=== PATIENT | male | born 1950 | race Caucasian/White ===

== ENCOUNTER → 2017-04-02 | Outpatient (CLI) | payer MEDICARE, OTHER ==
[~2017-04-02] MED LIST: CHL25 PO; DOXY100C PO; FLUC100T PO; LISI-661 PO; MONT10TA21 PO; PANT40TA25 PO; PRED10 PO; PROP10TA73 PO
[2017-04-02 10:52] LABS: BASOPHILS # (AUTO) 0.01 K/uL (0.00-0.20); BASOPHILS % (AUTO) 0.1 % (0.0-2.0); EOSINOPHILS # (AUTO) 0.03 K/uL (0.00-0.70); EOSINOPHILS % (AUTO) 0.55 % (1.0-6.0); HEMATOCRIT 37.9 % (41-53); HEMOGLOBIN 12.7 g/dL (13.5-17.5); LYMPHOCYTES # (AUTO) 0.6 K/uL (1.0-4.8); LYMPHOCYTES % (AUTO) 10.6 % (22.0-44.0); MEAN CORPUSCULAR HEMOGLOBIN 29.1 pg (26.0-34.0); MEAN CORPUSCULAR HGB CONC 33.4 G/dL (31.0-37.0); MEAN CORPUSCULAR VOLUME 87 fL (80-100); MONOCYTES # (AUTO) 0.3 K/uL (0.1-1.0); MONOCYTES % (AUTO) 5.6 % (2.0-9.0); NEUTROPHILS % (AUTO) 83.2 % (40.0-70.0); PLATELET COUNT (AUTO) 97 K/uL (150-450); RED BLOOD CELL COUNT(AUTO) 4.35 MIL/uL (4.50-5.90)
[2017-04-02 11:05] LABS: ALANINE AMINOTRANSFERASE 37 U/L (12-78); ALBUMIN 3.6 g/dL (3.4-5.0); ANION GAP 9 mmol/L (8-16); ASPARTATE AMINOTRANSFERASE 25 U/L (15-37); CALCIUM, TOTAL 9.2 mg/dL (8.8-10.5); CARBON DIOXIDE 28 mmol/L (22-29); CHLORIDE 102 mmol/L (98-107); CHOL/HDL RATIO 2.7 (4.2-7.3); CREATININE 1.03 mg/dL (0.60-1.30); GLOMERULAR FILTR. RATE CALC > 60 mL/min (>60); POTASSIUM 3.8 mmol/L (3.5-5.1); SODIUM SERUM 139 mmol/L (136-145); THYROID STIMULATING HORMONE 1.73 uIU/mL (0.36-3.74); TOTAL PROTEIN, SERUM 7.6 g/dL (6.4-8.2); UREA NITROGEN, BLOOD 12 mg/dL (7-18)
[2017-04-02 11:21] LABS: HEMOGLOBIN A1C 6.3 % (4.5-6.2)
[2017-04-02 11:42] LABS: RBC MORPHOLOGY COMMENT ABNORMAL RBC MORPH
== END | disposition home or self-care (01) ==
LOC: LABPV 08:27
PROVIDERS: ATTEND Internal Medicine Cardiovascular Disease
DX: I11.0 Hypertensive heart disease with heart failure (principal); I50.9 Heart failure, unspecified; E11.8 Type 2 diabetes mellitus with unspecified complications; E55.9 Vitamin D deficiency, unspecified
CPT/HCPCS: 82306; 83036; 83735; 84439; 84443

== ENCOUNTER → 2018-01-11 | Outpatient (CLI) | payer MEDICARE, OTHER ==
[2018-01-11 10:54] LABS: ALANINE AMINOTRANSFERASE 59 U/L (12-78); ALBUMIN 3.4 g/dL (3.4-5.0); ALKALINE PHOSPHATASE 111 U/L (46-116); ANION GAP 7 mmol/L (8-16); ASPARTATE AMINOTRANSFERASE 54 U/L (15-37); BILIRUBIN,TOTAL 0.8 mg/dL (0.1-1.0); CALCIUM, TOTAL 9.5 mg/dL (8.8-10.5); CARBON DIOXIDE 30 mmol/L (22-29); CHLORIDE 103 mmol/L (98-107); CHOL/HDL RATIO 2.7 (4.2-7.3); CHOLESTEROL 212 mg/dL (131-200); CREATININE 1.12 mg/dL (0.60-1.30); GLOMERULAR FILTR. RATE CALC > 60 mL/min (>60); GLUCOSE,RANDOM 105 mg/dL (70-110); HDL CHOLESTEROL 78 mg/dL (40-60); LDL CHOL (CALC.) 123 mg/dL (0-130); POTASSIUM 4.5 mmol/L (3.5-5.1); SODIUM SERUM 140 mmol/L (136-145); TOTAL PROTEIN, SERUM 7.5 g/dL (6.4-8.2); TRIGLYCERIDES 56 mg/dL (15-150); UREA NITROGEN, BLOOD 15 mg/dL (7-18)
== END | disposition home or self-care (01) ==
LOC: LABPV 07:46
PROVIDERS: ATTEND Internal Medicine Cardiovascular Disease
DX: I11.0 Hypertensive heart disease with heart failure (principal); I50.9 Heart failure, unspecified; E11.8 Type 2 diabetes mellitus with unspecified complications; E55.9 Vitamin D deficiency, unspecified; D56.5 Hemoglobin E-beta thalassemia

== ENCOUNTER → 2018-03-14 | Outpatient (CLI) | payer MEDICARE, OTHER ==
[2018-03-14 11:12] LABS: BASOPHILS % (AUTO) 0.4 % (0.0-2.0); EOSINOPHILS % (AUTO) 0.5 % (1.0-6.0); HEMATOCRIT 35.5 % (41-53); HEMOGLOBIN 11.3 g/dL (13.5-17.5); LYMPHOCYTES # (AUTO) 0.8 K/uL (1.0-4.8); LYMPHOCYTES % (AUTO) 12.5 % (22.0-44.0); MEAN CORPUSCULAR HGB CONC 31.7 G/dL (31.0-37.0); MEAN CORPUSCULAR VOLUME 82 fL (80-100); MONOCYTES # (AUTO) 0.4 K/uL (0.1-1.0); MONOCYTES % (AUTO) 5.7 % (2.0-9.0); NEUTROPHILS % (AUTO) 80.9 % (40.0-70.0); RED BLOOD CELL COUNT(AUTO) 4.33 MIL/uL (4.50-5.90); RED CELL DISTRIBUTION WIDTH 21.1 % (11.5-14.5)
[2018-03-14 11:22] LABS: HEMOGLOBIN A1C 6.4 % (4.5-6.2)
[2018-03-14 11:36] LABS: ALANINE AMINOTRANSFERASE 61 U/L (12-78); ALBUMIN 3.3 g/dL (3.4-5.0); ALKALINE PHOSPHATASE 146 U/L (46-116); ANION GAP 8 mmol/L (8-16); ASPARTATE AMINOTRANSFERASE 46 U/L (15-37); BILIRUBIN,TOTAL 1.3 mg/dL (0.1-1.0); CALCIUM, TOTAL 8.9 mg/dL (8.8-10.5); CARBON DIOXIDE 27 mmol/L (22-29); CHLORIDE 103 mmol/L (98-107); CHOL/HDL RATIO 2.6 (4.2-7.3); CHOLESTEROL 207 mg/dL (131-200); CREATININE 1.04 mg/dL (0.60-1.30); FREE T4 (FREE THYROXINE) 0.88 ng/dL (0.76-1.46); GLOMERULAR FILTR. RATE CALC > 60 mL/min (>60); GLUCOSE,RANDOM 110 mg/dL (70-110); HDL CHOLESTEROL 81 mg/dL (40-60); LDL CHOL (CALC.) 107 mg/dL (0-130); SODIUM SERUM 138 mmol/L (136-145); THYROID STIMULATING HORMONE 1.93 uIU/mL (0.36-3.74); TOTAL PROTEIN, SERUM 7.5 g/dL (6.4-8.2); TRIGLYCERIDES 95 mg/dL (15-150); UREA NITROGEN, BLOOD 8 mg/dL (7-18)
[2018-03-14 12:08] LABS: PLATELET COUNT (AUTO) 79 K/uL (150-450)
== END | disposition home or self-care (01) ==
LOC: LABPV 09:37
PROVIDERS: ATTEND Internal Medicine Cardiovascular Disease
DX: I11.0 Hypertensive heart disease with heart failure (principal); I50.9 Heart failure, unspecified; D56.5 Hemoglobin E-beta thalassemia; R73.09 Other abnormal glucose; Z79.899 Other long term (current) drug therapy
CPT/HCPCS: 82306; 83036; 83735; 84439; 84443

== ENCOUNTER 2018-09-27 06:25 | Day surgery (SDC) | payer MEDICARE, OTHER ==
[~2018-09-27] VITALS: Ht 167.6 cm; Wt 77.5 kg
[~2018-09-27 06:25] MED LIST changes: +SODIUM CHLORIDE 0.9% 0 ML IV ONE
[2018-09-27] MEDS ORDERED: LIDOCAINE 2% 11 ML JELLY TP ONE (06:26)
[2018-09-27] MEDS ORDERED: EPINEPHrine 1:1,000 [1 MG/ML] AMP SQ ONE (06:26)
[2018-09-27] MEDS ORDERED: BENZOCAINE 20% 50 MCG/SPRAY 57 GM TP ONE (06:26)
[2018-09-27] MEDS ORDERED: SODIUM CHLORIDE 0.9% 1,000 ML IV ONE ×2 (06:30→06:46)
[2018-09-27] MEDS ORDERED: MIDAZOLAM HCL 2 MG/2 ML VIAL ONE (08:04)
[2018-09-27] MEDS ORDERED: FentaNYL CITRATE-PF 100 MCG/2 ML VIAL ONE (08:04)
[2018-09-27] MEDS ORDERED: MethylPREDNISolone SOD SUCC 125 MG/2 ML VIAL IVP ONE (08:45)
[2018-09-27] MEDS ORDERED: MethylPREDNISolone SOD SUCC 125 MG/2 ML VIAL ONE (08:45)
[2018-09-27] MEDS ORDERED: OXYGEN THERAPY IH SCH (20:00)
== END 2018-09-27 10:00 | disposition home or self-care (01) ==
LOC: SURGERY 06:25
PROVIDERS: ATTEND Internal Medicine Critical Care Medicine
DX: J38.4 Edema of larynx (principal); B37.0 Candidal stomatitis; E78.00 Pure hypercholesterolemia, unspecified; K74.60 Unspecified cirrhosis of liver; I50.9 Heart failure, unspecified; Z98.890 Other specified postprocedural states; Z87.891 Personal history of nicotine dependence; Z85.05 Personal history of malignant neoplasm of liver
CPT/HCPCS: 31623; 31624; 71045; 87015; 87070; 87101; 87205; 87206; 87220; 88108; 88312; J0171; J2250; J2930; J3010; J7030

== ENCOUNTER 2019-03-19 10:50 | Inpatient (IN) | payer OTHER ==
[~2019-03-19] VITALS: Ht 167.6 cm; Wt 76.2 kg
[~2019-03-19 10:50] MED LIST changes: -SODIUM CHLORIDE 0.9% 0 ML IV ONE
[2019-03-19] MEDS ORDERED: PRED20 PO (11:14)
[2019-03-19] MEDS ORDERED: CHOL100018 PO (11:14)
[2019-03-19] MEDS ORDERED: SUCR1TAB PO (11:14)
[2019-03-19] MEDS ORDERED: MULT1TAB66 PO (11:14)
[2019-03-19] MEDS ORDERED: PRAV40TA4 PO (11:14)
[2019-03-19] MEDS ORDERED: LISI-661 PO (11:14)
[2019-03-19] MEDS ORDERED: TAMS-1 PO (11:14)
[2019-03-19] MEDS ORDERED: DOXY100C PO (11:14)
[2019-03-19] MEDS ORDERED: FOLI1 PO (11:14)
[2019-03-19] MEDS ORDERED: FURO20 PO (11:14)
[2019-03-19] MEDS ORDERED: METO25XL PO (11:14)
[2019-03-19] MEDS ORDERED: FERR-89 PO (11:14)
[2019-03-19] MEDS ORDERED: FURO40 PO (11:14)
[2019-03-19] MEDS ORDERED: MONT10TA21 PO (11:14)
[2019-03-19] MEDS ORDERED: RANI150T7 PO (11:14)
[2019-03-19] MEDS ORDERED: OMEP20 PO (11:14)
[2019-03-19] MEDS ORDERED: OXYGEN THERAPY IH SCH (11:30)
[2019-03-19 12:06] LABS: BASOPHILS % (AUTO) 0.2 % (0.0-2.0); EOSINOPHILS % (AUTO) 0.7 % (1.0-6.0); HEMATOCRIT 37.1 % (41-53); HEMOGLOBIN 11.8 g/dL (13.5-17.5); LYMPHOCYTES # (AUTO) 0.2 K/uL (1.0-4.8); LYMPHOCYTES % (AUTO) 3.3 % (22.0-44.0); MEAN CORPUSCULAR HEMOGLOBIN 28.2 pg (26.0-34.0); MEAN CORPUSCULAR HGB CONC 31.8 G/dL (31.0-37.0); MEAN CORPUSCULAR VOLUME 89 fL (80-100); MONOCYTES # (AUTO) 0.5 K/uL (0.1-1.0); MONOCYTES % (AUTO) 6.7 % (2.0-9.0); NEUTROPHILS # (AUTO) 6.4 K/uL (1.8-7.7); RED BLOOD CELL COUNT(AUTO) 4.19 MIL/uL (4.50-5.90); RED CELL DISTRIBUTION WIDTH 21.9 % (11.5-14.5)
[2019-03-19 12:07] LABS: NEUTROPHILS % (AUTO) 89.1 % (40.0-70.0)
[2019-03-19 12:12] LABS: ANION GAP 4 mmol/L (8-16); CALCIUM, TOTAL 8.8 mg/dL (8.8-10.5); CARBON DIOXIDE 33 mmol/L (22-29); CHLORIDE 97 mmol/L (98-107); GLOMERULAR FILTR. RATE CALC > 60 mL/min (>60); GLUCOSE,RANDOM 127 mg/dL (70-110); POTASSIUM 4.2 mmol/L (3.5-5.1); SODIUM SERUM 134 mmol/L (136-145); UREA NITROGEN, BLOOD 16 mg/dL (7-18)
[2019-03-19 12:20] LABS: ALANINE AMINOTRANSFERASE 80 U/L (12-78); ALBUMIN 2.5 g/dL (3.4-5.0); ALKALINE PHOSPHATASE 161 U/L (46-116); ASPARTATE AMINOTRANSFERASE 83 U/L (15-37); BILIRUBIN,TOTAL 1.2 mg/dL (0.1-1.0); LIPASE 179 U/L (73-393); TOTAL PROTEIN, SERUM 6.1 g/dL (6.4-8.2)
[2019-03-19 12:23] LABS: D-DIMER 3.69 mg/L FEU (0.00-0.50); INR 1.1 (0.9-1.1); PROTHROMBIN TIME 11.8 SEC (9.4-11.6)
[2019-03-19 12:27] LABS: LACTIC ACID 2.4 mmol/L (0.4-2.0)
[2019-03-19 12:33] LABS: PLATELET COUNT (AUTO) 57 K/uL (150-450)
[2019-03-19 12:34] LABS: PLATELET MORPHOLOGY COMMENT LARGE PLTS PRESENT
[2019-03-19 12:52] LABS: APPEARANCE,URINE CLEAR (CLEAR); BILIRUBIN,URINE NEGATIVE (NEGATIVE); GLUCOSE, URINE (UA) NEGATIVE (NEGATIVE); KETONES,URINE NEGATIVE (NEGATIVE); LEUKOCYTE ESTERASE ,URINE NEGATIVE (NEGATIVE); NITRATE,URINE NEGATIVE (NEGATIVE); OCCULT BLOOD,URINE NEGATIVE (NEGATIVE); PH,URINE 6.5 (5.0-8.0); PROTEIN,URINE NEGATIVE (NEGATIVE)
[2019-03-19 12:56] LABS: BACTERIA,URINE None Seen /HPF (None Seen); RBC,URINE None Seen /HPF (0-2); WBC,URINE None Seen /HPF (0-5)
[2019-03-19] MEDS ORDERED: FUROSEMIDE 40 MG/4 ML VIAL IVP ONE (13:00)
[2019-03-19] MEDS ORDERED: IOVERSOL 350 MG/ML 100 ML VIAL ONE (13:02)
[2019-03-19] MEDS ORDERED: SODIUM CHLORIDE 0.9% 100 ML ONE (13:02)
[2019-03-19 13:04] LABS: CREATININE,URINE RANDOM 64.5 mg/dL (30.0-125.0)
[2019-03-19] MEDS ORDERED: 0.9% SODIUM CHLORIDE 10 ML SYRINGE IVP PRN ×2 (14:45→15:00)
[2019-03-19] MEDS ORDERED: ALBUTEROL SULFATE 2.5 MG/0.5 ML NEB SOLUTION NEB PRN (15:00)
[2019-03-19] MEDS ORDERED: IPRATROPIUM BROMIDE 0.5 MG/2.5 ML NEB SOLUTION NEB PRN (15:00)
[2019-03-19] MEDS ORDERED: MAGNESIUM HYDROXIDE SUSPENSION 30 ML UDCUP PO PRN (15:00)
[2019-03-19] MEDS ORDERED: BISACODYL 10 MG RECTAL RECTAL SUPPOSITORY PR PRN (15:00)
[2019-03-19] MEDS ORDERED: ONDANSETRON HCL 4 MG/2 ML VIAL IVP PRN (15:00)
[2019-03-19] MEDS ORDERED: ACETAMINOPHEN 325 MG TABLET PO PRN (15:00)
[2019-03-19 15:07] LABS: B-TYPE NATRIURETIC PEPTIDE 117 pg/mL (0-100)
[2019-03-19] MEDS: SUCRALFATE 1 GM TABLET PO SCH ×2 (16:40→22:31)
[2019-03-19 21:21] VITALS: BP 111/68
[2019-03-19] MEDS: DOCUSATE SODIUM 100 MG CAPSULE PO SCH (22:23)
[2019-03-19 23:07] VITALS: BP 100/62
[2019-03-20 04:32] VITALS: BP 105/62
[2019-03-20 05:33] LABS: BASOPHILS % (AUTO) 0.5 % (0.0-2.0); EOSINOPHILS % (AUTO) 1.6 % (1.0-6.0); HEMATOCRIT 38.1 % (41-53); HEMOGLOBIN 12.4 g/dL (13.5-17.5); LYMPHOCYTES # (AUTO) 0.4 K/uL (1.0-4.8); LYMPHOCYTES % (AUTO) 5.5 % (22.0-44.0); MEAN CORPUSCULAR HEMOGLOBIN 28.4 pg (26.0-34.0); MEAN CORPUSCULAR HGB CONC 32.6 G/dL (31.0-37.0); MEAN CORPUSCULAR VOLUME 87 fL (80-100); MONOCYTES # (AUTO) 0.6 K/uL (0.1-1.0); MONOCYTES % (AUTO) 7.5 % (2.0-9.0); NEUTROPHILS # (AUTO) 6.7 K/uL (1.8-7.7); NEUTROPHILS % (AUTO) 84.9 % (40.0-70.0); PLATELET COUNT (AUTO) 73 K/uL (150-450); RED BLOOD CELL COUNT(AUTO) 4.36 MIL/uL (4.50-5.90); RED CELL DISTRIBUTION WIDTH 21.4 % (11.5-14.5)
[2019-03-20 05:46] LABS: ALANINE AMINOTRANSFERASE 78 U/L (12-78); ALBUMIN 2.6 g/dL (3.4-5.0); ALKALINE PHOSPHATASE 164 U/L (46-116); ANION GAP 4 mmol/L (8-16); ASPARTATE AMINOTRANSFERASE 70 U/L (15-37); BILIRUBIN,TOTAL 1.4 mg/dL (0.1-1.0); CALCIUM, TOTAL 9.2 mg/dL (8.8-10.5); CARBON DIOXIDE 34 mmol/L (22-29); CHLORIDE 97 mmol/L (98-107); CHOLESTEROL 168 mg/dL (131-200); CREATININE 0.94 mg/dL (0.60-1.30); GLOMERULAR FILTR. RATE CALC > 60 mL/min (>60); GLUCOSE,RANDOM 130 mg/dL (70-110); HDL CHOLESTEROL 83 mg/dL (40-60); LDL CHOL (CALC.) 80 mg/dL (0-130); POTASSIUM 3.6 mmol/L (3.5-5.1); SODIUM SERUM 135 mmol/L (136-145); TOTAL PROTEIN, SERUM 6.4 g/dL (6.4-8.2); TRIGLYCERIDES 24 mg/dL (15-150); UREA NITROGEN, BLOOD 16 mg/dL (7-18)
[2019-03-20] MEDS: FERROUS SULFATE 325 MG EC TABLET PO SCH (08:30)
[2019-03-20] MEDS: CHOLECALCIFEROL (VIT D3) 1,000 UNITS TABLET PO SCH (08:30)
[2019-03-20] MEDS: LISINOPRIL 10 MG TABLET PO SCH (08:30)
[2019-03-20 09:22] VITALS: BP 130/76
[2019-03-20 10:09] LABS: SPECIMENTYPE,BODY FLUID THORACENTESIS
[2019-03-20] MEDS: FUROSEMIDE 40 MG/4 ML VIAL IVP SCH (10:57)
[2019-03-20] MEDS: DOCUSATE SODIUM 100 MG CAPSULE PO SCH ×2 (10:58→20:15)
[2019-03-20] MEDS: SUCRALFATE 1 GM TABLET PO SCH ×3 (10:58→20:15)
[2019-03-20] MEDS: TAMSULOSIN HCL 0.4 MG CAPSULE PO SCH (10:58)
[2019-03-20] MEDS: PredniSONE 20 MG TABLET PO SCH (10:58)
[2019-03-20] MEDS: PRAVASTATIN SODIUM 40 MG TABLET PO SCH (10:59)
[2019-03-20] MEDS: METOPROLOL SUCCINATE 25 MG ER TABLET PO SCH (10:59)
[2019-03-20] MEDS: FOLIC ACID 1 MG TABLET PO SCH (10:59)
[2019-03-20] MEDS: MULTIVITAMINS, THERAPEUTIC TABLET PO SCH (10:59)
[2019-03-20] MEDS: MONTELUKAST SODIUM 10 MG TABLET PO SCH (10:59)
[2019-03-20] MEDS: PANTOPRAZOLE SODIUM 40 MG DR TABLET PO SCH (10:59)
[2019-03-20 11:57] VITALS: BP 101/73
[2019-03-20 12:24] LABS: APPEARANCE,UNSPUN,BODY FLUID HAZY (CLEAR)
[2019-03-20 12:25] LABS: APPEARANCE,SPUN,BODY FLUID CLEAR (CLEAR); COLOR,BODY FLUID DARK YELLOW (LT YELLOW); LYMPHOCYTES,BODY FLUID 18 %; MONOCYTES,BODY FLUID 48 %; NEUTROPHILS,BODY FLUID 17 %; PH, BODY FLUID 8; TOTAL VOLUME,BODY FLUID 1020 mL; WBC, BODY FLUID 120 /cu. mm.
[2019-03-20 12:26] LABS: BASOPHILS,BODY FLUID 0 %; EOSINOPHILS,BF (ANAL) 0 %
[2019-03-20 13:04] LABS: OTHER CELLS,BODY FLUID 17
[2019-03-20 15:22] VITALS: BP 103/59
[2019-03-20 20:32] VITALS: BP 91/61
[2019-03-21 00:20] VITALS: BP 90/63
[2019-03-21 04:25] VITALS: BP 94/62
[2019-03-21 06:38] LABS: BASOPHILS % (AUTO) 0.3 % (0.0-2.0); HEMATOCRIT 33.4 % (41-53); HEMOGLOBIN 11.1 g/dL (13.5-17.5); LYMPHOCYTES # (AUTO) 0.5 K/uL (1.0-4.8); LYMPHOCYTES % (AUTO) 8.1 % (22.0-44.0); MEAN CORPUSCULAR HEMOGLOBIN 29.4 pg (26.0-34.0); MEAN CORPUSCULAR HGB CONC 33.2 G/dL (31.0-37.0); MEAN CORPUSCULAR VOLUME 88 fL (80-100); MONOCYTES # (AUTO) 0.5 K/uL (0.1-1.0); MONOCYTES % (AUTO) 7.8 % (2.0-9.0); NEUTROPHILS # (AUTO) 5.1 K/uL (1.8-7.7); NEUTROPHILS % (AUTO) 81.8 % (40.0-70.0); PLATELET COUNT (AUTO) 53 K/uL (150-450); RED BLOOD CELL COUNT(AUTO) 3.78 MIL/uL (4.50-5.90); RED CELL DISTRIBUTION WIDTH 21.4 % (11.5-14.5)
[2019-03-21 06:49] LABS: PLATELET MORPHOLOGY COMMENT LARGE PLTS PRESENT
[2019-03-21 07:01] LABS: ALANINE AMINOTRANSFERASE 61 U/L (12-78); ALBUMIN 2.1 g/dL (3.4-5.0); ALKALINE PHOSPHATASE 129 U/L (46-116); ANION GAP 1 mmol/L (8-16); ASPARTATE AMINOTRANSFERASE 62 U/L (15-37); BILIRUBIN,TOTAL 1.2 mg/dL (0.1-1.0); CALCIUM, TOTAL 8.7 mg/dL (8.8-10.5); CARBON DIOXIDE 38 mmol/L (22-29); CHLORIDE 98 mmol/L (98-107); CREATININE 0.86 mg/dL (0.60-1.30); GLOMERULAR FILTR. RATE CALC > 60 mL/min (>60); GLUCOSE,RANDOM 103 mg/dL (70-110); POTASSIUM 3.8 mmol/L (3.5-5.1); SODIUM SERUM 137 mmol/L (136-145); TOTAL PROTEIN, SERUM 5.3 g/dL (6.4-8.2); UREA NITROGEN, BLOOD 21 mg/dL (7-18)
[2019-03-21] MEDS: METOPROLOL SUCCINATE 25 MG ER TABLET PO SCH (07:42)
[2019-03-21 07:55] VITALS: BP 102/48
[2019-03-21] MEDS: FERROUS SULFATE 325 MG EC TABLET PO SCH (08:08)
[2019-03-21] MEDS: FUROSEMIDE 40 MG/4 ML VIAL IVP SCH (08:08)
[2019-03-21] MEDS: PredniSONE 20 MG TABLET PO SCH (08:09)
[2019-03-21] MEDS: DOCUSATE SODIUM 100 MG CAPSULE PO SCH (08:09)
[2019-03-21] MEDS: SUCRALFATE 1 GM TABLET PO SCH (08:09)
[2019-03-21] MEDS: TAMSULOSIN HCL 0.4 MG CAPSULE PO SCH (08:09)
[2019-03-21] MEDS: FOLIC ACID 1 MG TABLET PO SCH (08:09)
[2019-03-21] MEDS: PANTOPRAZOLE SODIUM 40 MG DR TABLET PO SCH (08:10)
[2019-03-21] MEDS: CHOLECALCIFEROL (VIT D3) 1,000 UNITS TABLET PO SCH (08:10)
[2019-03-21] MEDS: MONTELUKAST SODIUM 10 MG TABLET PO SCH (08:10)
[2019-03-21] MEDS: PRAVASTATIN SODIUM 40 MG TABLET PO SCH (08:10)
[2019-03-21] MEDS: MULTIVITAMINS, THERAPEUTIC TABLET PO SCH (08:10)
[2019-03-21] MEDS: LISINOPRIL 10 MG TABLET PO SCH (09:00)
[2019-03-21 11:26] VITALS: BP 99/62
== END 2019-03-21 13:30 | disposition left against medical advice (07) | DRG 291 ==
LOC: EMS 10:59 → 5S 18:46 → MERGE 18:46
PROVIDERS: ADMIT Internal Medicine; ATTEND Internal Medicine
PROC: 0W993ZZ Drainage of Right Pleural Cavity, Percutaneous Approach (ICD-10-PCS; principal; 2019-03-20)
DX: I11.0 Hypertensive heart disease with heart failure (principal); J96.00 Acute respiratory failure, unspecified whether with hypoxia or hypercapnia; I50.31 Acute diastolic (congestive) heart failure; C22.9 Malignant neoplasm of liver, not specified as primary or secondary; E87.1 Hypo-osmolality and hyponatremia; J91.8 Pleural effusion in other conditions classified elsewhere; J84.10 Pulmonary fibrosis, unspecified; J43.9 Emphysema, unspecified; I50.811 Acute right heart failure; D69.6 Thrombocytopenia, unspecified; D63.8 Anemia in other chronic diseases classified elsewhere; J98.4 Other disorders of lung; K70.30 Alcoholic cirrhosis of liver without ascites; Z85.05 Personal history of malignant neoplasm of liver; Z87.891 Personal history of nicotine dependence; Z92.21 Personal history of antineoplastic chemotherapy; Z99.81 Dependence on supplemental oxygen; Z79.899 Other long term (current) drug therapy; Z53.21 Procedure and treatment not carried out due to patient leaving prior to being seen by health care provider
CPT/HCPCS: 32555; 71275; 76705; 76942; 80074; 82465; 82570; 82945; 83605; 83615; 83735; 83986; 84145; 84157; 85379; 87015; 87040; 87070; 87101; 87205; 87206; 89051; 93005; 93306; 93970; 94640; 96374; J1940; J7050

== ENCOUNTER 2019-03-23 17:49 | Inpatient (IN) | payer OTHER ==
[~2019-03-23] VITALS: Ht 167.6 cm; Wt 82.6 kg
[~2019-03-23 17:49] MED LIST changes: +CHOL100018 PO; +FERR-89 PO; +FOLI1 PO; +FURO20 PO; +FURO40 PO; +METO25XL PO; +MULT1TAB66 PO; +OMEP20 PO; +PRAV40TA4 PO; +PRED20 PO; +RANI150T7 PO; +SUCR1TAB PO; +TAMS-1 PO
[2019-03-23] MEDS ORDERED: DOPamine HCL 400 MG/D5%-WATER 250 ML IV PRN (18:15)
[2019-03-23] MEDS ORDERED: SUCR1TAB PO (18:21)
[2019-03-23] MEDS ORDERED: RANI150T7 PO (18:21)
[2019-03-23] MEDS ORDERED: DOXY100C PO (18:21)
[2019-03-23] MEDS ORDERED: FERR-89 PO (18:21)
[2019-03-23] MEDS ORDERED: MONT10TA21 PO (18:21)
[2019-03-23] MEDS ORDERED: OMEP20 PO (18:21)
[2019-03-23] MEDS ORDERED: METO25XL PO (18:21)
[2019-03-23] MEDS ORDERED: LISI-661 PO (18:21)
[2019-03-23] MEDS ORDERED: PRAV40TA4 PO (18:21)
[2019-03-23] MEDS ORDERED: CHOL100018 PO (18:21)
[2019-03-23] MEDS ORDERED: FOLI1 PO (18:21)
[2019-03-23] MEDS ORDERED: MULT1TAB66 PO (18:21)
[2019-03-23 18:34] LABS: BASOPHILS % (AUTO) 0.1 % (0.0-2.0); EOSINOPHILS % (AUTO) 2.1 % (1.0-6.0); HEMATOCRIT 35.7 % (41-53); HEMOGLOBIN 11.9 g/dL (13.5-17.5); LYMPHOCYTES # (AUTO) 0.5 K/uL (1.0-4.8); LYMPHOCYTES % (AUTO) 7.2 % (22.0-44.0); MEAN CORPUSCULAR HGB CONC 33.3 G/dL (31.0-37.0); MEAN CORPUSCULAR VOLUME 87 fL (80-100); MONOCYTES # (AUTO) 0.7 K/uL (0.1-1.0); MONOCYTES % (AUTO) 9.3 % (2.0-9.0); NEUTROPHILS # (AUTO) 5.8 K/uL (1.8-7.7); NEUTROPHILS % (AUTO) 81.3 % (40.0-70.0); RED BLOOD CELL COUNT(AUTO) 4.09 MIL/uL (4.50-5.90); RED CELL DISTRIBUTION WIDTH 21.8 % (11.5-14.5)
[2019-03-23 18:42] LABS: ANION GAP 4 mmol/L (8-16); CARBON DIOXIDE 34 mmol/L (22-29); CHLORIDE 94 mmol/L (98-107); CREATININE 1.18 mg/dL (0.60-1.30); GLUCOSE,RANDOM 134 mg/dL (70-110); POTASSIUM 4.1 mmol/L (3.5-5.1); SODIUM SERUM 132 mmol/L (136-145); UREA NITROGEN, BLOOD 26 mg/dL (7-18)
[2019-03-23 18:43] LABS: CALCIUM, TOTAL 8.2 mg/dL (8.8-10.5); GLOMERULAR FILTR. RATE CALC > 60 mL/min (>60); INR 1.1 (0.9-1.1); PROTHROMBIN TIME 11.5 SEC (9.4-11.6)
[2019-03-23 18:49] LABS: ALANINE AMINOTRANSFERASE 87 U/L (12-78); ALBUMIN 2.4 g/dL (3.4-5.0); ALKALINE PHOSPHATASE 192 U/L (46-116); ASPARTATE AMINOTRANSFERASE 93 U/L (15-37); BILIRUBIN,TOTAL 1.2 mg/dL (0.1-1.0); CREATINE KINASE, TOTAL ONLY 65 U/L (39-308); TOTAL PROTEIN, SERUM 5.8 g/dL (6.4-8.2)
[2019-03-23 18:54] LABS: B-TYPE NATRIURETIC PEPTIDE 138 pg/mL (0-100)
[2019-03-23 19:02] LABS: PLATELET COUNT (AUTO) 60 K/uL (150-450)
[2019-03-23] MEDS ORDERED: ALBUMIN HUMAN 25%-50GM/200ML 200 ML IV ONE (19:15)
[2019-03-23] MEDS ORDERED: MAGNESIUM SULFATE 2 GM/WATER 50 ML IV ONE (19:30)
[2019-03-23] MEDS ORDERED: ALBUTEROL SULFATE 2.5 MG/0.5 ML NEB SOLUTION NEB ONE (19:45)
[2019-03-23] MEDS ORDERED: IPRATROPIUM BROMIDE 0.5 MG/2.5 ML NEB SOLUTION NEB ONE (19:45)
[2019-03-23 19:57] LABS: ABG A-A DIFF O2 89.2 mmHg (10-20.0); ABG BASE EXCESS 9.9 mmol/L (-2.0-3.0); ABG CARBOXYHEMOGLOBIN 0.5 % (0.0-1.5); ABG HCO3 32.5 mmol/L (22.0-26.0); ABG METHEMOGLOBIN 0.2 % (0.0-1.5); ABG OXYGEN CONTENT 16.1 mL/dL (15.0-23.0); ABG OXYGEN SATURATION 96.3 % (95.0-98.0); ABG OXYHEMOGLOBIN 95.6 % (94.0-100.0); ABG PCO2 47 mmHg (35-45); ABG PH 7.469 (7.35-7.450); ABG TOTAL HEMOGLOBIN 11.9 G/dL (12.0-18.0); O2 DEVICE,BLOOD GAS CANNULA (ROOM AIR); PO2, ARTERIAL BG 83.6 mmHg (75.0-83.0); SITE, BLOOD GAS RT RADIAL; SOURCE, BLOOD GAS ARTERIAL; TEMPERATURE, FAHRENHEIT, BG 98.6 FAHREN (96.0-98.6)
[2019-03-23 20:44] LABS: APPEARANCE,URINE CLEAR (CLEAR); BILIRUBIN,URINE NEGATIVE (NEGATIVE); GLUCOSE, URINE (UA) NEGATIVE (NEGATIVE); KETONES,URINE NEGATIVE (NEGATIVE); LEUKOCYTE ESTERASE ,URINE NEGATIVE (NEGATIVE); NITRATE,URINE NEGATIVE (NEGATIVE); OCCULT BLOOD,URINE NEGATIVE (NEGATIVE); PH,URINE 5.5 (5.0-8.0); PROTEIN,URINE NEGATIVE (NEGATIVE)
[2019-03-23] MEDS ORDERED: ONDANSETRON HCL 4 MG/2 ML VIAL IVP PRN (21:15)
[2019-03-23] MEDS ORDERED: ACETAMINOPHEN 325 MG TABLET PO PRN (21:15)
[2019-03-23] MEDS ORDERED: 0.9% SODIUM CHLORIDE 10 ML SYRINGE IVP PRN (21:15)
[2019-03-23] MEDS ORDERED: 0.9% SODIUM CHLORIDE 5 ML NEB SOLUTION NEB ONE (21:34)
[2019-03-23 22:45] VITALS: BP 96/50
[2019-03-23 23:54] VITALS: BP 95/57
[2019-03-24] MEDS ORDERED: IPRATROPIUM BROMIDE 0.5 MG/2.5 ML NEB SOLUTION NEB SCH
[2019-03-24] MEDS ORDERED: ALBUTEROL SULFATE 2.5 MG/0.5 ML NEB SOLUTION NEB SCH
[2019-03-24] MEDS ORDERED: OxyCODONE HCL/ACETAMINOPHEN 5-325 MG TABLET PO PRN ×2 (04:30)
[2019-03-24] MEDS ORDERED: 0.9% SODIUM CHLORIDE 10 ML SYRINGE IVP PRN (04:30)
[2019-03-24] MEDS ORDERED: ONDANSETRON HCL 4 MG/2 ML VIAL IVP PRN (04:30)
[2019-03-24] MEDS ORDERED: ALBUMIN HUMAN 25%-12.5GM/50ML 50 ML IV ONE (05:00)
[2019-03-24 05:39] VITALS: BP 95/54
[2019-03-24 06:16] LABS: BASOPHILS % (AUTO) 0.2 % (0.0-2.0); EOSINOPHILS % (AUTO) 1.4 % (1.0-6.0); HEMATOCRIT 31.4 % (41-53); HEMOGLOBIN 10.4 g/dL (13.5-17.5); LYMPHOCYTES # (AUTO) 0.3 K/uL (1.0-4.8); LYMPHOCYTES % (AUTO) 5.8 % (22.0-44.0); MEAN CORPUSCULAR HEMOGLOBIN 29.1 pg (26.0-34.0); MEAN CORPUSCULAR HGB CONC 33.1 G/dL (31.0-37.0); MEAN CORPUSCULAR VOLUME 88 fL (80-100); MONOCYTES # (AUTO) 0.5 K/uL (0.1-1.0); MONOCYTES % (AUTO) 8.5 % (2.0-9.0); NEUTROPHILS # (AUTO) 4.5 K/uL (1.8-7.7); NEUTROPHILS % (AUTO) 84.1 % (40.0-70.0); RED BLOOD CELL COUNT(AUTO) 3.58 MIL/uL (4.50-5.90); RED CELL DISTRIBUTION WIDTH 21.7 % (11.5-14.5)
[2019-03-24 06:28] LABS: ALANINE AMINOTRANSFERASE 62 U/L (12-78); ALBUMIN 2.6 g/dL (3.4-5.0); ALKALINE PHOSPHATASE 133 U/L (46-116); ANION GAP 3 mmol/L (8-16); ASPARTATE AMINOTRANSFERASE 59 U/L (15-37); BILIRUBIN,TOTAL 1.3 mg/dL (0.1-1.0); CALCIUM, TOTAL 8.1 mg/dL (8.8-10.5); CARBON DIOXIDE 35 mmol/L (22-29); CHLORIDE 96 mmol/L (98-107); CREATININE 1.01 mg/dL (0.60-1.30); GLOMERULAR FILTR. RATE CALC > 60 mL/min (>60); GLUCOSE,RANDOM 99 mg/dL (70-110); POTASSIUM 3.5 mmol/L (3.5-5.1); SODIUM SERUM 134 mmol/L (136-145); TOTAL PROTEIN, SERUM 5.2 g/dL (6.4-8.2); UREA NITROGEN, BLOOD 21 mg/dL (7-18)
[2019-03-24 06:53] LABS: PLATELET COUNT (AUTO) 45 K/uL (150-450)
[2019-03-24 08:14] VITALS: BP 102/44
[2019-03-24] MEDS: FUROSEMIDE 20 MG/2 ML VIAL IVP SCH (09:00)
[2019-03-24] MEDS: HEPARIN SODIUM,PORCINE 5,000 UNITS/ML VIAL SQ SCH ×2 (09:00→20:00)
[2019-03-24] MEDS: SUCRALFATE 1 GM TABLET PO SCH ×3 (09:40→19:59)
[2019-03-24] MEDS: PRAVASTATIN SODIUM 40 MG TABLET PO SCH (09:40)
[2019-03-24] MEDS: OMEPRAZOLE 20 MG CAPSULE PO SCH ×2 (09:40→19:59)
[2019-03-24] MEDS: DOCUSATE SODIUM 100 MG CAPSULE PO SCH ×2 (09:40→19:59)
[2019-03-24] MEDS ORDERED: MAGNESIUM SULFATE 1 GM in DEXTROSE 5%-WATER 50 ML IV ONE (11:15)
[2019-03-24] MEDS ORDERED: POTASSIUM CHLORIDE 10% 40 MEQ/30 ML LIQUID UDCUP PO ONE (11:15)
[2019-03-24 11:28] VITALS: BP 98/60
[2019-03-24] MEDS ORDERED: ALBUMIN HUMAN 25%-50GM/200ML 200 ML IV ONE (11:30)
[2019-03-24] MEDS ORDERED: SODIUM CHLORIDE 0.9% 250 ML IV ONE (13:07)
[2019-03-24 16:10] VITALS: BP 113/81
[2019-03-24 20:11] VITALS: BP 110/70
[2019-03-24] MEDS: IPRATROPIUM BROMIDE 0.5 MG/2.5 ML NEB SOLUTION NEB PRN (22:15)
[2019-03-24] MEDS: ALBUTEROL SULFATE 2.5 MG/0.5 ML NEB SOLUTION NEB PRN (22:15)
[2019-03-25] VITALS (8 sets, daily range): BP systolic 101–117; BP diastolic 49–64
[2019-03-25 06:34] LABS: BASOPHILS % (AUTO) 0.5 % (0.0-2.0); EOSINOPHILS % (AUTO) 1.7 % (1.0-6.0); HEMATOCRIT 30.5 % (41-53); HEMOGLOBIN 10.3 g/dL (13.5-17.5); LYMPHOCYTES # (AUTO) 0.3 K/uL (1.0-4.8); LYMPHOCYTES % (AUTO) 5.8 % (22.0-44.0); MEAN CORPUSCULAR HEMOGLOBIN 29.7 pg (26.0-34.0); MEAN CORPUSCULAR HGB CONC 33.7 G/dL (31.0-37.0); MEAN CORPUSCULAR VOLUME 88 fL (80-100); MONOCYTES # (AUTO) 0.5 K/uL (0.1-1.0); NEUTROPHILS # (AUTO) 4.5 K/uL (1.8-7.7); PLATELET COUNT (AUTO) 41 K/uL (150-450); RED BLOOD CELL COUNT(AUTO) 3.45 MIL/uL (4.50-5.90); RED CELL DISTRIBUTION WIDTH 21.7 % (11.5-14.5)
[2019-03-25 06:39] LABS: ANION GAP 5 mmol/L (8-16); CALCIUM, TOTAL 8.6 mg/dL (8.8-10.5); CARBON DIOXIDE 34 mmol/L (22-29); CHLORIDE 97 mmol/L (98-107); CREATININE 0.81 mg/dL (0.60-1.30); GLOMERULAR FILTR. RATE CALC > 60 mL/min (>60); GLUCOSE,RANDOM 112 mg/dL (70-110); POTASSIUM 4.4 mmol/L (3.5-5.1); SODIUM SERUM 136 mmol/L (136-145); UREA NITROGEN, BLOOD 18 mg/dL (7-18)
[2019-03-25] MEDS: SUCRALFATE 1 GM TABLET PO SCH ×3 (08:32→20:34)
[2019-03-25] MEDS: FUROSEMIDE 20 MG/2 ML VIAL IVP SCH (08:32)
[2019-03-25] MEDS: OMEPRAZOLE 20 MG CAPSULE PO SCH ×2 (08:32→20:34)
[2019-03-25] MEDS: PRAVASTATIN SODIUM 40 MG TABLET PO SCH (08:32)
[2019-03-25] MEDS: DOCUSATE SODIUM 100 MG CAPSULE PO SCH ×2 (08:32→20:34)
[2019-03-25] MEDS: HEPARIN SODIUM,PORCINE 5,000 UNITS/ML VIAL SQ SCH ×2 (08:35→20:34)
[2019-03-25] MEDS ORDERED: PRAVASTATIN SODIUM 40 MG TABLET PO SCH (12:45)
[2019-03-25] MEDS: PredniSONE 20 MG TABLET PO SCH (13:40)
[2019-03-25] MEDS: METOPROLOL SUCCINATE 25 MG ER TABLET PO SCH (13:40)
[2019-03-25] MEDS: IPRATROPIUM BROMIDE 0.5 MG/2.5 ML NEB SOLUTION NEB PRN (17:21)
[2019-03-25] MEDS: ALBUTEROL SULFATE 2.5 MG/0.5 ML NEB SOLUTION NEB PRN (17:21)
[2019-03-26 05:07] VITALS: BP 98/67
[2019-03-26 06:52] LABS: ANION GAP 2 mmol/L (8-16); CALCIUM, TOTAL 8.6 mg/dL (8.8-10.5); CARBON DIOXIDE 36 mmol/L (22-29); CHLORIDE 97 mmol/L (98-107); CREATININE 0.75 mg/dL (0.60-1.30); GLOMERULAR FILTR. RATE CALC > 60 mL/min (>60); GLUCOSE,RANDOM 120 mg/dL (70-110); POTASSIUM 5.1 mmol/L (3.5-5.1); SODIUM SERUM 135 mmol/L (136-145); UREA NITROGEN, BLOOD 21 mg/dL (7-18)
[2019-03-26 07:27] LABS: B-TYPE NATRIURETIC PEPTIDE 325 pg/mL (0-100)
[2019-03-26] MEDS: PredniSONE 20 MG TABLET PO SCH (08:19)
[2019-03-26] MEDS: SUCRALFATE 1 GM TABLET PO SCH ×3 (08:19→20:52)
[2019-03-26] MEDS: DOCUSATE SODIUM 100 MG CAPSULE PO SCH ×2 (08:19→20:52)
[2019-03-26] MEDS: OMEPRAZOLE 20 MG CAPSULE PO SCH ×2 (08:19→20:52)
[2019-03-26] MEDS: HEPARIN SODIUM,PORCINE 5,000 UNITS/ML VIAL SQ SCH ×2 (08:20→20:56)
[2019-03-26] MEDS: METOPROLOL SUCCINATE 25 MG ER TABLET PO SCH ×2 (08:20→11:50)
[2019-03-26] MEDS: FUROSEMIDE 20 MG/2 ML VIAL IVP SCH ×2 (08:20→20:52)
[2019-03-26 08:22] VITALS: BP 101/63
[2019-03-26] MEDS: PRAVASTATIN SODIUM 40 MG TABLET PO SCH (08:27)
[2019-03-26 11:26] VITALS: BP 103/63
[2019-03-26] MEDS: SPIRONOLACTONE 25 MG TABLET PO SCH (15:42)
[2019-03-26 16:51] VITALS: BP 107/73
[2019-03-26 19:27] VITALS: BP 113/75
[2019-03-26 23:21] VITALS: BP 108/67
[2019-03-27 04:10] VITALS: BP 104/67
[2019-03-27 06:41] LABS: ANION GAP 0 mmol/L (8-16); CALCIUM, TOTAL 8.7 mg/dL (8.8-10.5); CARBON DIOXIDE 36 mmol/L (22-29); CHLORIDE 97 mmol/L (98-107); CREATININE 0.85 mg/dL (0.60-1.30); GLOMERULAR FILTR. RATE CALC > 60 mL/min (>60); GLUCOSE,RANDOM 124 mg/dL (70-110); POTASSIUM 4.9 mmol/L (3.5-5.1); SODIUM SERUM 133 mmol/L (136-145); UREA NITROGEN, BLOOD 26 mg/dL (7-18)
[2019-03-27 06:45] LABS: BASOPHILS % (AUTO) 0.2 % (0.0-2.0); EOSINOPHILS % (AUTO) 0.5 % (1.0-6.0); HEMATOCRIT 31.6 % (41-53); HEMOGLOBIN 10.5 g/dL (13.5-17.5); LYMPHOCYTES # (AUTO) 0.3 K/uL (1.0-4.8); LYMPHOCYTES % (AUTO) 4.3 % (22.0-44.0); MEAN CORPUSCULAR HEMOGLOBIN 29.5 pg (26.0-34.0); MEAN CORPUSCULAR HGB CONC 33.3 G/dL (31.0-37.0); MEAN CORPUSCULAR VOLUME 89 fL (80-100); MONOCYTES # (AUTO) 0.5 K/uL (0.1-1.0); MONOCYTES % (AUTO) 7.3 % (2.0-9.0); NEUTROPHILS # (AUTO) 6.4 K/uL (1.8-7.7); PLATELET COUNT (AUTO) 49 K/uL (150-450); RED BLOOD CELL COUNT(AUTO) 3.57 MIL/uL (4.50-5.90); RED CELL DISTRIBUTION WIDTH 21.8 % (11.5-14.5)
[2019-03-27 07:12] LABS: NEUTROPHILS % (AUTO) 87.7 % (40.0-70.0)
[2019-03-27 07:43] VITALS: BP 106/48
[2019-03-27] MEDS: PRAVASTATIN SODIUM 40 MG TABLET PO SCH (08:21)
[2019-03-27] MEDS: OMEPRAZOLE 20 MG CAPSULE PO SCH ×2 (08:21→21:32)
[2019-03-27] MEDS: DOCUSATE SODIUM 100 MG CAPSULE PO SCH ×2 (08:21→21:32)
[2019-03-27] MEDS: METOPROLOL SUCCINATE 25 MG ER TABLET PO SCH (08:21)
[2019-03-27] MEDS: SUCRALFATE 1 GM TABLET PO SCH ×3 (08:21→21:32)
[2019-03-27] MEDS: PredniSONE 20 MG TABLET PO SCH (08:21)
[2019-03-27] MEDS: FUROSEMIDE 20 MG/2 ML VIAL IVP SCH ×2 (08:22→21:32)
[2019-03-27] MEDS: HEPARIN SODIUM,PORCINE 5,000 UNITS/ML VIAL SQ SCH ×2 (08:27→21:00)
[2019-03-27 11:27] VITALS: BP 115/50
[2019-03-27] MEDS: SPIRONOLACTONE 25 MG TABLET PO SCH (12:20)
[2019-03-27] MEDS ORDERED: FURO40I IM (13:59)
[2019-03-27] MEDS ORDERED: SPIR25 PO (13:59)
[2019-03-27] MEDS ORDERED: AUD NEB (14:03)
[2019-03-27] MEDS ORDERED: IPRNEB IH (14:03)
[2019-03-27 15:35] VITALS: BP 108/60
[2019-03-27 19:28] VITALS: BP 107/80
[2019-03-28 00:22] VITALS: BP 96/62
[2019-03-28 04:03] VITALS: BP 98/67
[2019-03-28 06:27] LABS: EOSINOPHILS % (AUTO) 0.5 % (1.0-6.0); HEMATOCRIT 36.6 % (41-53); LYMPHOCYTES # (AUTO) 0.4 K/uL (1.0-4.8); LYMPHOCYTES % (AUTO) 6.1 % (22.0-44.0); MEAN CORPUSCULAR HEMOGLOBIN 29.3 pg (26.0-34.0); MEAN CORPUSCULAR HGB CONC 32.7 G/dL (31.0-37.0); MEAN CORPUSCULAR VOLUME 90 fL (80-100); MONOCYTES # (AUTO) 0.5 K/uL (0.1-1.0); MONOCYTES % (AUTO) 7.8 % (2.0-9.0); PLATELET COUNT (AUTO) 59 K/uL (150-450); RED BLOOD CELL COUNT(AUTO) 4.08 MIL/uL (4.50-5.90); RED CELL DISTRIBUTION WIDTH 21.8 % (11.5-14.5)
[2019-03-28 06:46] LABS: NEUTROPHILS % (AUTO) 85.6 % (40.0-70.0)
[2019-03-28 07:47] VITALS: BP 112/68
[2019-03-28] MEDS: METOPROLOL SUCCINATE 25 MG ER TABLET PO SCH (08:42)
[2019-03-28] MEDS: HEPARIN SODIUM,PORCINE 5,000 UNITS/ML VIAL SQ SCH (08:43)
[2019-03-28] MEDS: DOCUSATE SODIUM 100 MG CAPSULE PO SCH (08:43)
[2019-03-28] MEDS: FUROSEMIDE 20 MG/2 ML VIAL IVP SCH (08:44)
[2019-03-28] MEDS: PredniSONE 20 MG TABLET PO SCH (08:44)
[2019-03-28] MEDS: SPIRONOLACTONE 25 MG TABLET PO SCH (08:44)
[2019-03-28] MEDS: SUCRALFATE 1 GM TABLET PO SCH ×2 (08:45→15:12)
[2019-03-28] MEDS: PRAVASTATIN SODIUM 40 MG TABLET PO SCH (08:45)
[2019-03-28] MEDS: OMEPRAZOLE 20 MG CAPSULE PO SCH (08:45)
[2019-03-28 09:18] LABS: ANION GAP -1 mmol/L (8-16); CALCIUM, TOTAL 9.7 mg/dL (8.8-10.5); CARBON DIOXIDE 38 mmol/L (22-29); CHLORIDE 96 mmol/L (98-107); CREATININE 0.82 mg/dL (0.60-1.30); GLOMERULAR FILTR. RATE CALC > 60 mL/min (>60); GLUCOSE,RANDOM 137 mg/dL (70-110); POTASSIUM 4.7 mmol/L (3.5-5.1); SODIUM SERUM 133 mmol/L (136-145); THYROID STIMULATING HORMONE 4.95 uIU/mL (0.36-3.74)
[2019-03-28 09:26] LABS: UREA NITROGEN, BLOOD 30 mg/dL (7-18)
[2019-03-28] MEDS ORDERED: MAGNESIUM OXIDE 400 MG TABLET PO ONE (10:30)
[2019-03-28 10:41] LABS: PHOSPHORUS 3.6 mg/dL (2.5-4.9)
[2019-03-28 11:00] VITALS: BP 95/57
[2019-03-28] MEDS ORDERED: ASPIRIN 81 MG EC TABLET PO SCH (11:00)
[2019-03-28] MEDS: NITROGLYCERIN 2% (1 GM=INCH) PACKET TP SCH ×2 (11:31→15:13)
[2019-03-28 11:54] LABS: HEMOGLOBIN A1C 6.2 % (4.5-6.2)
[2019-03-28] MEDS ORDERED: LEVO25TA9 PO (12:04)
[2019-03-28 15:00] VITALS: BP 120/66
[2019-03-29] MEDS ORDERED: LEVOTHYROXINE SODIUM 25 MCG TABLET PO SCH (06:30)
[2019-03-29] MEDS ORDERED: METOPROLOL SUCCINATE 25 MG ER TABLET PO SCH (09:00)
== END 2019-03-28 15:30 | DRG 291 ==
LOC: EMS 17:51 → 5S 22:22
PROVIDERS: ADMIT Internal Medicine; ATTEND Internal Medicine
DX: I11.0 Hypertensive heart disease with heart failure (principal); J96.01 Acute respiratory failure with hypoxia; E87.1 Hypo-osmolality and hyponatremia; E44.0 Moderate protein-calorie malnutrition; I50.33 Acute on chronic diastolic (congestive) heart failure; I95.9 Hypotension, unspecified; K21.9 Gastro-esophageal reflux disease without esophagitis; E78.00 Pure hypercholesterolemia, unspecified; E80.6 Other disorders of bilirubin metabolism; E78.5 Hyperlipidemia, unspecified; K74.60 Unspecified cirrhosis of liver; R73.9 Hyperglycemia, unspecified; D69.6 Thrombocytopenia, unspecified; D64.9 Anemia, unspecified; J84.10 Pulmonary fibrosis, unspecified; J43.9 Emphysema, unspecified; K70.9 Alcoholic liver disease, unspecified; I50.82 Biventricular heart failure; Z92.21 Personal history of antineoplastic chemotherapy; Z85.05 Personal history of malignant neoplasm of liver; Z79.899 Other long term (current) drug therapy; Z68.29 Body mass index [BMI] 29.0-29.9, adult
CPT/HCPCS: 36600; 82805; 83036; 83735; 84100; 84443; 93005; 93306; 94640; 97116; 97162; 97530; J1940; J3475; J7050; J7060; P9046; P9047